=== PATIENT | male | born 1935 | race Caucasian/White ===

== ENCOUNTER 2019-07-07 02:02 | Emergency (ER) | payer OTHER, BC | END 2019-07-07 08:30 | disposition short-term general hospital (02) | LOC: ER 02:02 | DX: N39.0 Urinary tract infection, site not specified (principal); R33.9 Retention of urine, unspecified; E11.9 Type 2 diabetes mellitus without complications; E78.00 Pure hypercholesterolemia, unspecified; K21.9 Gastro-esophageal reflux disease without esophagitis; Z90.49 Acquired absence of other specified parts of digestive tract ==